=== PATIENT | male | born 1960 | race Caucasian/White ===

== ENCOUNTER → 2018-02-21 18:07 | Outpatient (CLI) | payer MEDICARE, SELFPAY ==
[2018-02-21 18:31] LABS: Hematocrit 45.2 % (40-54); Hemoglobin 14.5 g/dl (13.0-16.5); Mean Corp Hgb Conc 32.1 g/gl (32-36); Mean Corpuscular Hgb 30.5 pg (27.0-32.0); Mean Corpuscular Volume 95.2 fL (80-94); Mean Platelet Vol. 11.3 fl (6.2-12.0); Platelet Count 212 K/mm3 (150-450); RBC Distribution Width SD 45.1 fl (35.1-43.9); Red Blood Count 4.75 M/mm3 (4.6-6.2); White Blood Count 6.1 K/mm3 (4.4-11.0)
[2018-02-21 18:41] LABS: AST(SGOT) 36 U/L (15-37); Alanine Aminotransfer ALT/SGPT 60 U/L (16-61); Albumin, Serum 3.7 g/dL (3.2-5.0); Alkaline Phosphatase 90 U/L (45-117); Anion Gap 9 (5-15); BUN 16 mg/dL (7-18); BUN/Creat Ratio 13.3 RATIO (10-20); Calcium,Total 8.9 mg/dL (8.5-10.1); Chloride 109 mmol/L (98-107); Cholesterol 168 mg/dL (200); EST Glomerular Filtration Rate 66 mL/min (>60); Est Glom Filt Rate - Afr Amer 80 mL/min (>60); Globulin 3.7 g/dL (2.2-4.2); Glucose 101 mg/dL (74-106); Potassium 4.2 mmol/L (3.5-5.1); Protein, Total 7.4 g/dL (6.4-8.2); Sodium Level 142 mmol/L (136-145)
[2018-02-21 18:47] LABS: Scan Indicated on CBC? Y/N NO
== END ==
PROVIDERS: Visit Provider Nurse Practitioner Adult Health
DX: Z00.01 Encounter for general adult medical examination with abnormal findings (principal); G80.4 Ataxic cerebral palsy
CPT/HCPCS: 80053; 82465; 85027

== ENCOUNTER 2022-03-29 10:30 | Outpatient (RCR) | payer MEDICARE, MEDICAID, SELFPAY ==
--- NOTE | 2022-03-01 15:53 | HP.OTEVAL_ITS ---
Patient's Visit Information SAMANTA ACOSTA is a 61 year old M, referred to Occupational Therapy by Dr. Lila Calderon, , with a diagnosis of CP. Date of Evaluation: 03/01/22 Occupational Therapist: Carolina Gonzalez, OTR/Vinh, CHT - Subjective This 61 year old male was seen for OT eval with dx. CP recent placement with family (Jonny is brother) as father in Jul. Jonny speaks for pt. Jonny states him and his are adj. well with having Samanta move into their home. He feels Samanta is happy and doing well. Jonny states his works from home and she does help keep an eye on Pt. like to play wit match box toys-. Jonny states all family members have assisted in helping with Samanta. Jonny states they just want to make sure they are not missing something that Samanta may need. - ADLs Comments: family is wanting to get pt more mobile and possible use of a w/c for being able participate in community events. family takes care of pts meals- bathing /dressing min. supervision. pt stands in shower with grab bars. (walk- in shower). toileting IND. pt will do dishes. - ROM ROM Comments: pt demo bilateral UE WFL - Strength Shoulder: right 9# left 11# peak force Elbow: right 11# left 13# peak force Scrap Stripper Hand: right 60# left 40# Lateral Pinch: right 10# left 8# Tripod Pinch: right 12# left 10# - Rehabilitation General Assessment: with family input and based on needs pt will continue with PT to decrease scissor ambulation/tone and improve strength- Family agrees No skilled OT services needed at this time. - Visit Plan TEXT: Thank you for the opportunity to evaluate your patient. For Medicare and Medicare HMO plans, please review the plan of care and approve it. It will need to be FAXED BACK to us at [phone] for Medicare purposes. Please let me know if there are questions or concerns regarding this plan of care. Physician Signature: Date:
--- NOTE | 2022-05-29 13:51 | HP.PT.NRP ---
SAMANTA ACOSTA was seen in my office for initial evaluation on 03/01/22. The following Plan of Care was established for this patient: Initial Frequency: 2-3x /Week Initial Duration: 4-6 Weeks Patient/Client Instruction: Educate patient on: Condition, Plan of Care For the Purpose of:: To improve self management Therapeutic Exercise to Include: Strength training, Endurance training, Balance training, Flexibilty training, Gait and locomotor training, Dynamic Lumbar Stabilization For the Purpose of:: To increase ROM, To improve muscle performance and motor function, To increase tolerance to activity/condition/position This patient was last seen in our office . Pertinent comments regarding their Physical therapy will appear below: Pt was treated for cerebral palsy for 4 PT visits through the date of 03/29/22. Pt has not returned through todays date and is discontinued at this time. At this point I will be discontinuing this patient from physical therapy. I would be happy to see this patient again in the future if found appropriate by the physician. Thank you! Doron Wayne, PT, ATC Balance/Gait/Functional tests - Balance/Special Test Scores Lower Extremity Functional Score: 15
== END 2022-03-29 19:00 | disposition home or self-care (01) ==
LOC: PT 10:30
PROVIDERS: PCP Family Medicine; Referring Provider Family Medicine; Visit Provider Family Medicine
DX: G80.9 Cerebral palsy, unspecified (principal); Z74.09 Other reduced mobility
CPT/HCPCS: 97110; 97161; 97166